=== PATIENT | female | born 1950 | race Two or more races ===

== ENCOUNTER → 2018-06-27 20:35 | Emergency (ER) | payer BC, OTHER ==
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
[2018-06-27 22:59] VITALS: BP 157/83
== END | disposition home or self-care (01) ==
LOC: ED 20:35
DX: T78.49XA Other allergy, initial encounter (principal); R42 Dizziness and giddiness; R11.0 Nausea; R61 Generalized hyperhidrosis; X58.XXXA Exposure to other specified factors, initial encounter
CPT/HCPCS: 99282

== ENCOUNTER 2019-10-29 08:56 | Emergency (ER) | payer BC, OTHER ==
[2019-10-29 09:29] VITALS: BP 131/70
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
== END 2019-10-29 11:37 | disposition home or self-care (01) ==
LOC: UCEAST 08:56
DX: M51.34 Other intervertebral disc degeneration, thoracic region (principal); M85.88 Other specified disorders of bone density and structure, other site; M41.84 Other forms of scoliosis, thoracic region; V49.9XXA Car occupant (driver) (passenger) injured in unspecified traffic accident, initial encounter; Y99.9 Unspecified external cause status
CPT/HCPCS: 72070; 99211; G0463